=== PATIENT | female | born 1950 | race Caucasian/White ===

== ENCOUNTER 2019-01-21 08:01 | Day surgery (SDC) | payer MEDICARE ==
[~2019-01-21 08:01] MED LIST: ACETAMINOPHEN 1,000 MG/100 ML BTL IVPB ONE
[2019-01-21] MEDS ORDERED: PROPOFOL 10 MG/ML VIAL IV ONE (08:02)
[2019-01-21] MEDS ORDERED: ONDANSETRON HCL IV 4 MG/2 ML VIAL IVP ONE (08:02)
[2019-01-21] MEDS ORDERED: KETOROLAC 30 MG/ML VIAL IVP ONE (08:02)
[2019-01-21] MEDS ORDERED: LIDOCAINE 2% MDV (20MG/ML) 20ML VIAL IV ONE (08:02)
[2019-01-21] MEDS ORDERED: DEXAMETHASONE 4 MG/ML 1ML VIAL IVP ONE (08:02)
[2019-01-21] MEDS ORDERED: FENTANYL PF 100MCG/2ML VIAL IV ONE (08:02)
[2019-01-21] MEDS ORDERED: SEVOFLURANE 250 ML INH ONE (08:02)
[2019-01-21] MEDS ORDERED: MIDAZOLAM HCL 2MG/2ML VIAL IV ONE (08:02)
[2019-01-21 08:15] LABS: ABSOLUTE NEUTROPHIL COUNT 2.65; BASO % 1.8 % (0-6); EOS % 4.2 % (0-6); GRAN % 48.8 % (47-80); HEMATOCRIT 43.1 % (35.0-47.0); HEMOGLOBIN 14.1 gm/dl (11.6-16.0); LYMPH % 35.4 % (16-45); MEAN CELL VOLUME 86.2 fl (81-97); MEAN CORPUSCULAR HEMOGLOBIN 28.2 pg (27-33); MEAN CORPUSCULAR HGB CONC 32.7 g/dl (32-36); MEAN PLATELET VOLUME 12.4 fl (7.4-10.4); MONO % 9.8 % (0-9); PLATELET COUNT 190 K/uL (130-400); RED CELL DISTRIBUTION WIDTH 14.5 % (11.5-14.5); WHITE BLOOD COUNT W/O DIFF 5.4 K/uL (4.2-12.2)
[2019-01-21] MEDS ORDERED: RINGERS SOLUTION,LACTATED 1,000 ML IV ONE (09:44)
[2019-01-21] MEDS ORDERED: BUPIVACAINE 0.25% W/EPI MPF 30ML VIAL SQ ONE (09:57)
[2019-01-21] MEDS ORDERED: IBUPROFEN 400 MG TABLET PO ONE (10:54)
--- NOTE | 2019-01-22 13:40 | Operative Note ---
DATE OF SURGERY: 01/21/2019 PREOPERATIVE DIAGNOSIS: Torn medial meniscus of the right knee. POSTOPERATIVE DIAGNOSES: 1. Torn medial and lateral meniscus of the right knee. 2. Tri-compartmental chondromalacia of the right knee. OPERATION: 1. Arthroscopic partial medial and lateral meniscectomy of the right knee. 2. Arthroscopic tri-compartmental chondroplasty of the right knee. SURGEON: Octaviano Burdick D.O. REFERRING PHYSICIAN: Delmy Bagley N.P. ANESTHESIA: General. PROCEDURE: This 68-year-old female was taken to the operating room and placed in the supine position on the operating room table. A general anesthetic was administered and the right lower extremity was elevated. It was exsanguinated and the tourniquet inflated to 300 mmHg. Arthroscopic knee deleon applied. The right knee prepped with Hibiclens and draped in the usual sterile fashion. An inferior lateral portal was established with a 4 mm arthroscope and initial evaluation of the joint demonstrated normal appearance of the suprapatellar pouch, but marked degenerative change of the articular cartilage of the patellofemoral joint was present. Grade 3 chondromalacia of both the patella and the trochlea were present. There was an area of the trochlea in the center of the trochlea groove, which was about 0.75 cm wide and about 1.5 to 2 cm in length, which demonstrated very severe grade 3 change with only a small thin layer of cartilage covering the bone. Grossly unstable fragments of articular cartilage were present and chondroplasty was performed to stabilize the cartilage of the patellofemoral joint. The medial compartment was entered and a complex tear of the posterior horn of the medial meniscus was present and this tear extended throughout the entire posterior horn and extended out to the body with the apex of the tear being at approximately the 1:30 to 2 o'clock position. Utilizing the basket forceps and rotating shaver, we resected unstable fragments of the meniscus and smoothed, trimmed, and balanced the meniscus. It was reprobed and confirmed to be stable. Extensive grade 2 chondromalacia of the medial femoral condyle was present and up near the meniscal crest grade 3 changes were noted. Chondroplasty was performed to stabilize the articular cartilage there. The articular cartilage of the lateral compartment also demonstrated advanced degenerative change with grade 3 changes noted in the articulating surface of the lateral femoral condyle. Disruption of the lateral meniscus was also evident, extending from the posterior horn all the way around to approximately the 8 o'clock position, but no full-thickness defects were present to the periphery, the largest disruption being at approximately the 11:30 position. Utilizing the basket forceps and rotating shaver, this was smoothed, trimmed, and balanced to stable meniscal rim. It was reprobed and confirmed to be stable. The joint was copiously irrigated and suctioned. All the instruments were removed. The portals were infiltrated with 0.25% Marcaine with epinephrine. Sterile dressings applied. The tourniquet and knee deleon were released and the patient taken to the recovery room in satisfactory condition. GROSS PATHOLOGY: Extensive grade 3 chondromalacia of the patellofemoral articulation was present, all other areas demonstrating advanced grade 2 changes, except for a small area just below the meniscal crest on the medial femoral condyle which demonstrated grade 3 change. FLORESD
== END 2019-01-21 11:16 | disposition home or self-care (01) ==
LOC: SUR 08:01
PROVIDERS: ATTEND Orthopaedic Surgery
DX: S83.231A Complex tear of medial meniscus, current injury, right knee, initial encounter (principal); S83.281A Other tear of lateral meniscus, current injury, right knee, initial encounter; M94.261 Chondromalacia, right knee; I10 Essential (primary) hypertension; F43.10 Post-traumatic stress disorder, unspecified
CPT/HCPCS: 85025; J1885; J2405; J7120